=== PATIENT | female | born 1995 | race Caucasian/White ===

== ENCOUNTER → 2022-06-21 00:07 | Outpatient (CLI) | payer OTHER, SELFPAY ==
[2022-06-21 11:01] LABS: SARS-CoV-2 RNA PCR Negative
== END ==
PROVIDERS: PCP Emergency Medicine; Visit Provider Emergency Medicine
DX: R05.9 Cough, unspecified (principal); Z20.822 Contact with and (suspected) exposure to COVID-19
CPT/HCPCS: C9803; U0003; U0005